=== PATIENT | male | born 1955 | race Caucasian/White ===

== ENCOUNTER → 2016-09-03 | Day surgery (SDC) | payer BC ==
[~2016-09-03] MED LIST: ACETAMINOPHEN PO; ACETAMINOPHEN500 M5 PO; ADVIL200 M3 PO; ALLEGRA-D1 TAB.SR2 PO; ALPRAZOLAM PO; ALPRAZOLAM0.25 MG PO; ATORVASTATIN CA40 MG PO; AVODART0.5 MG PO; BAYER ASPIRIN325 M1 PO; FLOMAX0.4 MG PO; HYDROCODON-ACE1 EAC7 PO; IBUPROFEN800 MG PO; KEFLEX PO; LIPITOR PO; MOBIC15 MG PO; NORCO 10/3251 TAB PO; NORVASC PO; NORVASC10 MG PO; PANTOPRAZOLE SO40 MG PO; PRILOSEC PO; TOPROL XL PO; TOPROL XL50 MG PO; TYLOX 5-500 CA1 EACH PO
--- NOTE | ~2016-09-03 | OR ---
Unit #: [id number] #: [id number] Patient: CIERRA ANGELES [id number] [address] [address] [id number] O MR#: [id number] NAME: CIERRA ANGELES. ROOM: Date of Procedure: 09/03/2016 Admission Date: 09/03/2016 Surgeon: Myles Yates M.D. : 1955 Attending Physician: Myles Yates M.D. Primary Care Physician: Daniel Mcneill M.D. SUR[facility]ERY CENTER OPERATIVE NOTE PROCEDURE PERFORMED Lumbar epidural steroid injection under x-ray guided needle placement with provider administered conscious sedation. PREOPERATIVE DIAGNOSES 1. Acute lumbar radiculitis. 2. Spinal stenosis, lumbosacral spine. 3. Herniated disk, L4-L5. 4. Herniated disk, L3-L4. 5. Degenerative joint disease, lumbosacral spine. 6. Degenerative disk disease, lumbosacral spine. INDICATIONS FOR PROCEDURE The patient presents today with longstanding history of chronic lumbar radicular pain secondary to his underlying degenerative processes. He is generally fairly well managed medically with ongoing continuous conservative measures; however, he has occasionally experienced exacerbations, which to date have only responded to epidural steroid injections. He has usual amount of relief is 80% to 90% for 8 to 10 months. He presents today complaining of just such an exacerbation which is compatible with his past. He is in possession of MRI report, which shows discrepancies described in the diagnosis section of this dictation. After discussing risks and benefits of proceeding today with L4-L5 epidural steroid injection with potential for a dual needle access technique, the patient agreed this would be the appropriate course of action. DESCRIPTION OF PROCEDURE He was then taken to the operating room, where he was prepped and draped in a sterile manner. Standard monitors were applied. He was sedated with 2 mg of IV Versed initially and required additional 2 mg of IV Versed throughout the duration of the procedure. Lumbar epidural space accessed at L4-L5 level using loss of resistance technique and x-ray guidance. Needle placement was confirmed with injection of 2 mL of Omnipaque. Approximately 80% of dye flow was in the superior direction. Total x-ray time for this L4-L5 needle placement was 13 seconds. Following successful confirmation of the needle into the epidural space, the patient received an injectate containing 4 mL normal saline and 80 mg of methylprednisolone. He tolerated this procedure well. He was discharged home with followup instructions, which include an offer to return to this clinic as early as 12/17/2016 if we could be of further service to him. He was instructed if he was asymptomatic at that time to simply not keep that appointment and to follow up at such point in future, so we could be Unit #: [id number] #: [id number] Patient: CIERRA ANGELES of further service. He was further instructed if he ever reached a point where felt these injections were not helping to simply not follow up with this clinic and to follow up with his referring and/or primary care provider such that he can get more advanced care. Dictated by... Chris Allen/darwin TD: 09/04/2016 00:08 JOB #: [id number] CC: Kyle Cooper M.D. SUR[facility]ERY CENTER OPERATIVE NOTE Page 1 of 1 X Johnson Yates MD X PROCEDURE OPERATIVE NOTE
== END | disposition home or self-care (01) ==
LOC: CCSC 08:28
DX: G89.29 Other chronic pain (principal); M51.17 Intervertebral disc disorders with radiculopathy, lumbosacral region; M48.07 Spinal stenosis, lumbosacral region; Z85.46 Personal history of malignant neoplasm of prostate; Z87.891 Personal history of nicotine dependence; Z91.030 Bee allergy status; Z98.890 Other specified postprocedural states
CPT/HCPCS: J1040; J2250

== ENCOUNTER → 2017-01-12 | Day surgery (SDC) | payer BC ==
--- NOTE | ~2017-01-12 | OR ---
Unit #: [id number] #: [id number] Patient: CIERRA ANGELES [id number] [address] [place], [place] [address] [id number] MR#: [id number] NAME: CIERRA ANGELES. ROOM: Date of Procedure: 01/12/2017 Admission Date: 01/12/2017 Surgeon: Myles Yates M.D. : 1955 Attending Physician: Myles Yates M.D. Primary Care Physician: Daniel Mcneill M.D. SUR[facility]ERY CENTER OPERATIVE NOTE PROCEDURE PERFORMED Lumbar epidural steroid injection under x-ray guided needle placement with provider administered conscious sedation. PREOPERATIVE DIAGNOSES 1. Acute lumbar radiculitis. 2. Spinal stenosis, lumbosacral spine. 3. Herniated disk, L3-L4. 4. Degenerative joint disease, lumbosacral spine. 5. Degenerative disk disease, lumbosacral spine. INDICATIONS FOR PROCEDURE The patient presents today with longstanding history of chronic recurrent lumbar radicular pain secondary to his underlying degenerative processes. He is generally fairly well managed medically with completely pain-free. However, on occasion he has experienced exacerbations, which failed to respond to conservative measures including medication and physical therapy, and these exacerbations have responded to epidural steroid injection with approximately 100% relief for 3 to 5 months. He presents today with a multiweek history of just such an exacerbation, which again has broken through his usual ongoing conservative measures and has negatively impacted his activities of daily living. It is similar in nature to past exacerbations and consistent with his x-ray studies. After discussing risks and benefits of proceeding today with a lumbar approach epidural steroid injection, the patient now agreed this would be the appropriate course of action. DESCRIPTION OF PROCEDURE He was then taken to the operating room, where was prepped and draped in a sterile manner. Standard monitors were applied. He was sedated with 2 mg of IV Versed and lumbar epidural space was accessed at the L3-L4 level using loss of resistance technique and x-ray guidance. Needle placement was confirmed with injection of 2 mL of Omnipaque. Approximately, 60% of dye flow was in the superior direction. Following successful needle placement confirmation, the patient received an injectate containing 4 mL of normal saline and 80 mg of methylprednisolone. He tolerated this procedure well. He was discharged home with followup which include return to this clinic on 04/22/2017. Dictated by... Myles Yates M.D. Unit #: [id number] #: [id number] Patient: CIERRA ANGELES JRG/modl TD: 01/12/2017 15:41 JOB #: [id number] CC: Kyle Cooper M.D. SUR[facility] CENTER OPERATIVE NOTE Page 1 of 1 X Johnson Yates MD X PROCEDURE OPERATIVE NOTE
== END | disposition home or self-care (01) ==
LOC: CCSC 13:07
DX: G89.29 Other chronic pain (principal); M51.16 Intervertebral disc disorders with radiculopathy, lumbar region; M51.17 Intervertebral disc disorders with radiculopathy, lumbosacral region; M47.27 Other spondylosis with radiculopathy, lumbosacral region; M48.07 Spinal stenosis, lumbosacral region; K21.9 Gastro-esophageal reflux disease without esophagitis; Z85.46 Personal history of malignant neoplasm of prostate; Z91.030 Bee allergy status; Z79.891 Long term (current) use of opiate analgesic; Z79.899 Other long term (current) drug therapy; Z90.79 Acquired absence of other genital organ(s); Z98.890 Other specified postprocedural states
CPT/HCPCS: J1040; J2250